=== PATIENT | male | born 2000 | race Hispanic/Latino ===

== ENCOUNTER 2019-10-12 19:56 | Emergency (ER) | payer MEDICAID, OTHER ==
[~2019-10-12 19:56] MED LIST: Iopamidol 370 76% 100 ML VIAL ONE
[2019-10-12] MEDS ORDERED: Ketorolac Tromethamine 30 MG/ML VIAL ONE (20:17)
[2019-10-12 20:33] LABS: #Basophils 0.1 thou/uL (0.0-0.2); #Eosinphils 0.2 thou/uL (0.0-0.7); #Lymphocytes 2.1 thou/uL (1.20-3.40); %Eosinophils 1.9 % (0.0-10.0); %Lymphocytes 22.7 % (28.0-48.0); %Monocytes 10.7 % (0.0-4.0); %Neutrophils 63.8 % (31.0-61.0); Hemoglobin 14.3 g/dL (14.0-18.0); Mean Corpuscular HGB CONC 31.9 g/dL (32.0-36.0); Mean Corpuscular Hemoglobin 26.3 pg (25.0-35.0); Mean Corpuscular Volume 82.5 fL (78.0-98.0); Mean Platelet Volume 9.9 fL (7.4-10.4); Platelet Count 200 thou/uL (130-400); RBC Distribution Width 13.2 % (11.5-14.5); Red Blood Cell (RBC) Count 5.42 mill/uL (4.00-5.20); White Blood Cell (WBC) Count 9.4 thou/uL (4.8-10.8)
[2019-10-12 20:43] LABS: ALT (SGPT) 67 U/L (8-55); AST (SGOT) 38 U/L (5-34); Albumin 4.7 g/dL (3.5-5.0); Alkaline Phosphatase 101 U/L (50-130); Anion Gap 16 mmol/L (10-20); BUN (Urea Nitrogen) 25 mg/dL (8.9-20.6); Bilirubin, Total 0.6 mg/dL (0.2-1.2); Calc. Creatinine Clearance 0 mL/min (70-130); Calcium 9.5 mg/dL (7.8-10.44); Carbon Dioxide 25 mmol/L (22-29); Chloride 102 mmol/L (98-107); Estimated GFR-MDRD Greater than 90; Globulin 3.3 g/dL (2.4-3.5); Glucose 122 mg/dL (70-105); Potassium 3.8 mmol/L (3.5-5.1); Sodium 139 mmol/L (136-145)
--- NOTE | 2019-10-12 21:29 | RAD ---
EXAM: CHEST TWO VIEWS: 10/12/19 HISTORY: Chest pain. FINDINGS: Heart size is normal. The lungs are clear. No confluent pneumonia, overt edema, or pleural effusion. IMPRESSION: No acute intrathoracic disease. POS: RRE
--- NOTE | 2019-10-12 22:37 | CT ---
CT ANGIOGRAM THORAX WITH IV CONTRAST AND 3-D RECONSTRUCTIONS CLINICAL INDICATION: Chest pain. COMPARISON: None FINDINGS: Pulmonary arteries: There is suboptimal timing of the contrast bolus limiting adequate evaluation of the pulmonary arteries. There is also significant motion at the level of the pulmonary arteries related to cardiac motion. No filling defects are seen within the central or segmental pulmonary mojgan marshall to suggest pulmonary emboli these levels. Subsegmental pulmonary arteries are not well evaluated. Aorta: Thoracic aorta is normal in caliber without aortic dissection visualized. Lungs: Mild dependent atelectasis is present. No consolidation or pleural fluid is identified. Mediastinum: Heart is at the upper limits normal in size. No enlarged lymph nodes are seen by CT size criteria. Thyroid gland: Grossly normal in appearance where visualized. Osseous structures: No acute process. Chest wall: No abnormality visualized. Upper abdomen: Within normal limits for phase of imaging. IMPRESSION: 1. Suboptimal timing of the contrast bolus, but no definite filling defect is seen within the central or segmental pulmonary arteries to suggest pulmonary embolus. Subsegmental pulmonary arteries are not well evaluated.
== END 2019-10-12 23:08 | disposition home or self-care (01) ==
LOC: NAV ERS 19:56
DX: R07.9 Chest pain, unspecified (principal); R74.0 Nonspecific elevation of levels of transaminase and lactic acid dehydrogenase [LDH]
CPT/HCPCS: 71046; 71275; 80053; 84484; 85025; 85379; 93005; 96374; J1885; Q9967